=== PATIENT | female | born 1980 | race Caucasian/White ===

== ENCOUNTER 2016-12-31 20:38 | Emergency (ER) | payer SELFPAY ==
[~2016-12-31] VITALS: Ht 162.6 cm; Wt 75.9 kg
[~2016-12-31 20:38] MED LIST: VICODIN 5-3001 EACH PO; ZOFRAN4 MG PO
[2016-12-31 21:15] LABS: HEMATOCRIT 36.7 % (36.0-46.0); MCHC 33.5 G/DL (30.0-36.0); MCV 92.4 FL (83-99); MEAN PLAT.VOLUME 9.5 uM^3 (9.5-12.4); PLATELET COUNT 241 K/uL (156-360); RBC DIS.WIDTH-CV 11.8 % (11.8-14.6); RBC DIS.WIDTH-SD 40.2 % (39-53); RED BLOOD COUNT 3.97 M/uL (3.80-5.20); WHITE BLOOD COUNT 8.9 K/uL (4.1-10.2)
[2016-12-31 21:26] LABS: CHLORIDE 108 mEq/L (99-109); POTASSIUM 3.3 mEq/L (3.7-5.4); SODIUM 140 mEq/L (136-147)
[2016-12-31 21:27] LABS: GLUCOSE 89 mg/dL (70-99)
[2016-12-31 21:29] LABS: ANION GAP 7 MEQ/L (2-14)
[2016-12-31 21:31] LABS: GFR ESTIMATE (CALCULATED) > 59 mL/min/
[2016-12-31 21:32] LABS: UREA NITROGEN (BUN) 8 mg/dL (9-23)
[2016-12-31 21:34] LABS: D-DIMER ELISA < 150.00 ng/mLDDU (<230)
[2016-12-31 21:37] LABS: TROP-I INTERPRETATION NEGATIVE; TROPONIN-I < 0.01 ng/mL (0.0-0.30)
[2016-12-31 22:56] VITALS: BP 121/90
== END 2016-12-31 23:51 | disposition home or self-care (01) ==
LOC: EME 20:38
PROVIDERS: Emergency Medicine
DX: R07.89 Other chest pain (principal); F17.200 Nicotine dependence, unspecified, uncomplicated; Z85.828 Personal history of other malignant neoplasm of skin
CPT/HCPCS: 71020; 80048; 84484; 85027; 85379; 93005; 99281; 99284; J1885

== ENCOUNTER 2017-08-29 10:31 | Emergency (ER) | payer OTHER ==
[~2017-08-29] VITALS: Ht 165.1 cm; Wt 79.2 kg
[2017-08-29 10:59] LABS: HEMATOCRIT 40.4 % (36.0-46.0); MCHC 34.7 G/DL (30.0-36.0); MCV 92.2 FL (83-99); PLATELET COUNT 290 K/uL (156-360); RBC DIS.WIDTH-SD 41.1 % (39-53); RED BLOOD COUNT 4.38 M/uL (3.80-5.20)
[2017-08-29 11:12] LABS: ALBUMIN 4.3 g/dL (3.2-4.8); CHLORIDE 109 mEq/L (99-109); POTASSIUM 3.9 mEq/L (3.7-5.4); SODIUM 141 mEq/L (136-147)
[2017-08-29 11:15] LABS: GLUCOSE 93 mg/dL (70-99); TOTAL PROTEIN 6.9 g/dL (6.4-8.3)
[2017-08-29 11:17] LABS: TOTAL BILIRUBIN 0.2 mg/dL (0.0-1.0)
[2017-08-29 11:18] LABS: ALKALINE PHOSPHATASE 59 IU/L (3-129); CREATININE 0.8 mg/dL (0.6-1.3); GFR ESTIMATE (CALCULATED) > 59 mL/min/
[2017-08-29 11:19] LABS: UREA NITROGEN (BUN) 6 mg/dL (9-23)
[2017-08-29 11:20] LABS: AST (GOT) 16 IU/L (2-34)
[2017-08-29 11:21] LABS: ALT (GPT) 17 IU/L (3-49)
[2017-08-29 11:25] LABS: APPEARANCE SL.HAZY ((CLEAR)); BILIRUBIN NEGATIVE; BLOOD SMALL; COLOR YELLOW ((YELLOW)); GLUCOSE (STRIP) NEGATIVE; KETONES NEGATIVE; LEUKOCYTES MODERATE; NITRITE NEGATIVE; PROTEIN (STRIP) NEGATIVE; SPECIFIC GRAVITY 1.008 (1.000-1.030); UROBILINOGEN 0.2 MG/DL (0.2-1.0)
[2017-08-29 11:27] LABS: QUANTITATIVE HCG < 4.0 MIU/ML
[2017-08-29 11:29] LABS: BACTERIA RARE /HPF; EPITHELIAL CELLS 1+ /HPF; MUCUS TRACE /LPF; UCUL ADDED? YES; WHITE BLOOD CELLS 15-20 /HPF (0-5)
[2017-08-29] MEDS ORDERED: MOTRIN600 MG PO (13:06)
[2017-08-29] MEDS ORDERED: BACTRIM,SEPT1 TABLET PO (13:06)
[2017-08-29 13:16] VITALS: BP 116/71
== END 2017-08-29 13:17 | disposition home or self-care (01) ==
LOC: EME 10:31
DX: R10.11 Right upper quadrant pain (principal); G89.29 Other chronic pain; N39.0 Urinary tract infection, site not specified; N20.0 Calculus of kidney; Z98.51 Tubal ligation status; M51.37 Other intervertebral disc degeneration, lumbosacral region; Z85.828 Personal history of other malignant neoplasm of skin; F17.200 Nicotine dependence, unspecified, uncomplicated
CPT/HCPCS: 74176; 80053; 81003; 84702; 85027; 87086; 99281; 99283